=== PATIENT | female | born 1955 | race Caucasian/White ===

== ENCOUNTER 2021-04-12 18:21 | Emergency (ER) | payer OTHER ==
[~2021-04-12] VITALS: Ht 152.4 cm; Wt 87.3 kg
[2021-04-12 22:10] VITALS: BP 145/89
== END 2021-04-12 22:10 | disposition home or self-care (01) | DRG 605 ==
LOC: ED 18:21
PROC: 0HQGXZZ Repair Left Hand Skin, External Approach (ICD-10-PCS; principal; 2021-04-12)
DX: S61.211A Laceration without foreign body of left index finger without damage to nail, initial encounter (principal); I10 Essential (primary) hypertension; F17.210 Nicotine dependence, cigarettes, uncomplicated; W26.0XXA Contact with knife, initial encounter; Y93.G1 Activity, food preparation and clean up; Y92.000 Kitchen of unspecified non-institutional (private) residence as the place of occurrence of the external cause